=== PATIENT | female | born 1965 | race Caucasian/White ===

== ENCOUNTER 2018-02-26 09:04 | Emergency (ER) | payer MEDICAID ==
[2013-05-03 22:54] VITALS: BMI 21.2
[~2018-02-26 09:04] MED LIST: CARAFATE1 G PO; KEFLEX SUS125 MG/5 M; KEFLEX500 MG PO; NORCO 5/325 TAB1 TA1; PRILOSEC20 MG PO; ULTRAM50 MG PO; VIBRAMYCIN 100100 MG PO; ZOFRAN ODT4 MG/UDTAB PO
== END 2018-02-26 11:06 | disposition home or self-care (01) ==
LOC: D.ER 09:04
DX: L02.411 Cutaneous abscess of right axilla (principal); F17.200 Nicotine dependence, unspecified, uncomplicated

== ENCOUNTER 2018-08-23 07:18 | Emergency (ER) | payer MEDICAID ==
[~2018-08-23] VITALS: Ht 170.2 cm; Wt 61.4 kg
[2018-08-23 07:22] VITALS: Ht 170.2 cm; Wt 61.4 kg
[2018-08-23] MEDS ORDERED: LEVAQUIN750 MG PO (08:27)
[2018-08-23] MEDS ORDERED: NORCO 7.5/325 T1 TA1 PO (08:27)
[2018-08-23 08:47] VITALS: BP 134/96
== END 2018-08-23 08:50 | disposition home or self-care (01) ==
LOC: D.ER 07:18
DX: S91.331A Puncture wound without foreign body, right foot, initial encounter (principal); W45.0XXA Nail entering through skin, initial encounter; Y93.89 Activity, other specified; Y92.019 Unspecified place in single-family (private) house as the place of occurrence of the external cause; B19.20 Unspecified viral hepatitis C without hepatic coma; F17.200 Nicotine dependence, unspecified, uncomplicated

== ENCOUNTER 2018-09-11 17:45 | Day surgery (SDC) | payer MEDICAID ==
[~2018-09-11] VITALS: Ht 170.2 cm; Wt 61.4 kg
--- NOTE | ~2018-09-11 | OP ---
PATIENT NAME: ZOLTAN DAWSON MEDICAL RECORD: [id number] LOCATION:[id number] ADMISSION DATE:09/11/18 SURGEON: MANUEL JUNG MD DATE OF OPERATION: 09/12/2018 PREOPERATIVE DIAGNOSIS: Displaced left clavicle fracture - comminuted. POSTOPERATIVE DIAGNOSIS: Displaced left clavicle fracture - comminuted. PROCEDURE: Open reduction internal fixation of left clavicle fracture. SURGEON: Manuel Jung MD ANESTHESIA: General. INTRAOPERATIVE COMPLICATIONS: Essentially none. SUMMARY OF PATHOLOGIC FINDINGS: The patient had 3 portion of the clavicle fracture, which all came back together nicely with the Sal VariAx 8-hole midshaft clavicle plate/superior. OPERATIVE SUMMARY IN DETAIL: After obtaining the appropriate preoperative orthopedic surgery consent as well as anesthetic consultation, evaluation and clearance, the patient was brought to the operating room and placed on the operating table in supine position. After general laryngeal mask airway was administered, the patient was placed in a slight beach chair position. She was held firmly to the operating table using the vacuum pack suction system. Radiograph was then utilized to verify the fracture and verify good radiographic appearance. Incision was made medially to laterally just over the superior aspect of the clavicle. Dissection was carried down to the clavicle periosteum. Fracture was identified. Fracture hematoma was removed. The fracture was reduced in all segments and then pinned provisionally using a K-wire and clamps remained in place. Serial and sequential drill and fill with a combination of both compression style screws as well as locking screws were then placed resulting in an excellent construct. Radiographs were taken and submitted for final radiologist review. The wound was copiously irrigated. Platysma was closed, followed by subcutaneous and skin brigido. Sterile dressings were applied. The patient was awakened, taken to recovery room in stable condition. All final needle and sponge counts were correct. TRANSINT:[id number] Voice Confirmation ID: [id number] DOCUMENT ID: [id number] FABIANA ABREU, MANUEL TRAVIS at 0759 CC: [id number] DICTATION DATE: 09/13/18 1032 INFRASTRUCTURE ARCHITECT: 09/13/18 1328 DIS IN 09/13/18 [id number] [place] [address]
[~2018-09-11 17:45] MED LIST changes: +LEVAQUIN750 MG PO; +NORCO 7.5/325 T1 TA1 PO
[2018-09-11 19:09] VITALS: BP 148/95
[2018-09-11 20:19] LABS: BASOPHILS 0.5 % (0-2); EOSINOPHILS 3.1 % (0-7); HEMATOCRIT 44.1 % (36.0-48.0); HEMOGLOBIN 14.3 g/dL (12-16); IMMATURE GRANULOCYTES 0.1 % (0-5); LYMPHOCYTES 22.3 % (15-50); MCHC 32.4 g/dL (31.0-37.0); MCV 92.6 fL (80.0-100.0); MEAN PLATELET VOLUME 11.7 fL (7.4-10.4); MONOCYTES 7.7 % (2-11); NEUTROPHILS 66.3 % (40-80); PLATELET COUNT 217 10x3/uL (130-400); RBC 4.76 10x6/uL (4.00-5.40); RDW 13.6 % (11.5-14.5); WBC 7.4 10x3/uL (4.8-10.8)
[2018-09-11 20:26] LABS: APTT 32.6 SECONDS (22.8-39.4); INR 0.93 (0.85-1.17)
[2018-09-11 20:29] LABS: PROTIME 12.2 SECONDS (11.6-15.0)
[2018-09-11 20:31] LABS: ALBUMIN 3.4 g/dL (3.4-5.0); ANION GAP 12.7 mmol/L (8-16); BILIRUBIN - TOTAL 0.26 mg/dL (0.2-1.3); CALCIUM 9.2 mg/dL (8.5-10.1); CARBON DIOXIDE 28.3 mmol/L (21.0-32.0); CREATININE - SERUM 0.9 mg/dL (0.6-1.3); PROTEIN - SERUM 7.7 g/dL (6.4-8.2)
[2018-09-11 20:50] VITALS: BP 144/85
[2018-09-12 01:25] VITALS: BP 148/87; Ht 170.2 cm; Wt 61.4 kg
[2018-09-12 05:01] VITALS: BP 134/84
[2018-09-12 08:43] VITALS: BP 103/67
[2018-09-12 16:29] VITALS: BP 145/89
[2018-09-12 20:00] VITALS: BP 101/69
[2018-09-13] VITALS: BP 100/60
[2018-09-13 04:00] VITALS: BP 116/71
[2018-09-13 09:37] VITALS: BP 135/75
[2018-09-13] MEDS ORDERED: NORCO 10-325 TA1 TAB PO (09:40)
== END 2018-09-13 14:04 | disposition home or self-care (01) ==
LOC: OBSVTIME → D.OPS 17:45 → D.ER 17:45 → D.MS 20:25 → OBSVTIME 20:26 → D.ER 21:14 → EDSTATUS 09-12 12:45 → D.OPS 09-13 14:04 → D.MS 09-13 14:04
PROVIDERS: Family Medicine
DX: S42.022A Displaced fracture of shaft of left clavicle, initial encounter for closed fracture (principal); W11.XXXA Fall on and from ladder, initial encounter; B19.20 Unspecified viral hepatitis C without hepatic coma; F17.210 Nicotine dependence, cigarettes, uncomplicated

== ENCOUNTER 2018-11-17 20:02 | Emergency (ER) | payer MEDICAID ==
[~2018-11-17] VITALS: Ht 170.2 cm; Wt 59.1 kg
[~2018-11-17 20:02] MED LIST changes: +NORCO 10-325 TA1 TAB PO
[2018-11-17 20:06] VITALS: Ht 170.2 cm; Wt 59.1 kg
[2018-11-17] MEDS ORDERED: CLEOCIN HCL300 MG PO (20:40)
[2018-11-17] MEDS ORDERED: NAPROSYN500 MG PO (20:40)
[2018-11-17 20:58] VITALS: BP 121/75
== END 2018-11-17 20:59 | disposition home or self-care (01) ==
LOC: D.ER 20:02
DX: L03.114 Cellulitis of left upper limb (principal); L03.113 Cellulitis of right upper limb; M79.642 Pain in left hand; M79.641 Pain in right hand; F17.200 Nicotine dependence, unspecified, uncomplicated

== ENCOUNTER 2019-11-17 11:33 | Emergency (ER) | payer MEDICAID ==
[~2019-11-17] VITALS: Ht 170.2 cm; Wt 59.1 kg
[~2019-11-17 11:33] MED LIST changes: +CLEOCIN HCL300 MG PO; +NAPROSYN500 MG PO
[2019-11-17 11:47] VITALS: Ht 170.2 cm; Wt 59.1 kg
[2019-11-17 12:51] LABS: BASOPHILS 0.2 % (0-2); HEMATOCRIT 40.1 % (36.0-48.0); HEMOGLOBIN 13.4 g/dL (12-16); IMMATURE GRANULOCYTES 0.3 % (0-5); LYMPHOCYTES 14.6 % (15-50); MCH 29.3 pg (26.0-34.0); MCHC 33.4 g/dL (31.0-37.0); MCV 87.7 fL (80.0-100.0); MEAN PLATELET VOLUME 11.7 fL (7.4-10.4); MONOCYTES 11.4 % (2-11); NEUTROPHILS 72.5 % (40-80); RBC 4.57 10x6/uL (4.00-5.40); RDW 13.1 % (11.5-14.5); WBC 11.9 10x3/uL (4.8-10.8)
[2019-11-17 12:54] LABS: ANION GAP 14.6 mmol/L (8-16); CALCIUM 8.9 mg/dL (8.5-10.1); POTASSIUM - SERUM 3.6 mmol/L (3.5-5.1)
[2019-11-17 12:56] LABS: PLATELET COUNT 304 10x3/uL (130-400)
[2019-11-17 13:02] LABS: ALBUMIN 3.3 g/dL (3.4-5.0); BILIRUBIN - TOTAL 0.41 mg/dL (0.2-1.3); PROTEIN - SERUM 8.1 g/dL (6.4-8.2)
[2019-11-17] MEDS ORDERED: LEVAQUIN750 MG PO (13:54)
[2019-11-17] MEDS ORDERED: ALBUTEROL SULF8.5 GM INH (13:54)
[2019-11-17] MEDS ORDERED: MUCINEX DM ER1 EAC1 PO (13:54)
[2019-11-17] MEDS ORDERED: VALIUM5 MG PO (14:16)
[2019-11-17 14:28] VITALS: BP 129/83
== END 2019-11-17 14:29 | disposition home or self-care (01) ==
LOC: D.ER 11:33
PROVIDERS: Family Medicine
DX: J20.9 Acute bronchitis, unspecified (principal); J06.9 Acute upper respiratory infection, unspecified; M62.838 Other muscle spasm